=== PATIENT | male | born 1940 | race Hispanic/Latino ===

== ENCOUNTER → 2024-06-20 | Outpatient (CLI) | payer OTHER ==
[2024-06-20 10:28] LABS: INR 1.14 (0.85-1.15); PROTHROMBIN TIME 12.2 SEC (9.6-11.6)
[2024-06-20 10:29] LABS: PARTIAL THROMBOPLASTIN TIME 28.1 SEC (26.3-35.5)
--- NOTE | 2024-07-02 14:54 | HMCIMG ---
US BIOPSY LYMPHNODE HISTORY: Right parotid mass and right thyroid nodule COMPARISON: None TECHNIQUE: Informed consent was obtained. Risks and benefits were explained to the patient. A timeout was performed. Patient was prepped and draped in a sterile fashion. Local anesthetics was given as required. Under ultrasound guidance, right parotid mass was localized. Ultrasound guidance core biopsy of right parotid mass was performed with 18-gauge biopsy gun. 3 core samples were obtained. Under ultrasound guidance, right thyroid mass was localized. Needle aspiration was performed under ultrasound guidance. 5 passes were made. FINDINGS: Core biopsy samples of the right parotid mass and needle aspiration samples of the right thyroid mass was sent to the pathology lab. Patient tolerated procedure without complication. Patient left the department in good condition. IMPRESSION: 1. Uncomplicated ultrasound guidance right parotid mass core biopsy and ultrasound guidance right thyroid mass needle aspiration.
== END | disposition home or self-care (01) ==
LOC: RAH 09:29
PROVIDERS: ATTEND Internal Medicine
DX: D37.030 Neoplasm of uncertain behavior of the parotid salivary glands (principal); E04.1 Nontoxic single thyroid nodule; D11.0 Benign neoplasm of parotid gland; I25.10 Atherosclerotic heart disease of native coronary artery without angina pectoris; I50.32 Chronic diastolic (congestive) heart failure; G47.09 Other insomnia; M06.09 Rheumatoid arthritis without rheumatoid factor, multiple sites; E11.40 Type 2 diabetes mellitus with diabetic neuropathy, unspecified; I48.91 Unspecified atrial fibrillation; Z79.01 Long term (current) use of anticoagulants; Z79.899 Other long term (current) drug therapy
CPT/HCPCS: 10005; 36415; 38505; 42400; 76942; 85610; 85730; 88173; 88305